=== PATIENT | female | born 1970 | race Caucasian/White ===

== ENCOUNTER 2016-04-21 14:18 | Emergency (ER) | payer SELFPAY ==
--- NOTE | 2016-04-21 14:26 | ER Document Report ---
ED Medical Screen (RME) - General Chief Complaint: Chest Pain Stated Complaint: CHEST PAIN Time seen by provider: 14:24 Mode of Arrival: Ambulatory Information source: Patient Notes: 45 yo female presents to ed for chest palpitations that changed to chest tightness and short of breath with headache. TRAVEL OUTSIDE OF THE [place] IN LAST 30 DAYS: No - HPI Onset: This morning Onset/Duration: Gradual Quality of pain: Other - tight Severity: Moderate Pain Level: 3 Associated Symptoms: Chest pain, Headache, Shortness of breath, Other - palpitations Exacerbated by: Denies Relieved by: Denies Similar symptoms previously: Yes Recently seen / treated by doctor: No - Related Data Smoking: Other - vap Frequency of alcohol use: Occasional Drug Abuse: None Allergies/Adverse Reactions: acetaminophen [From Percocet] Adverse Reaction (Verified 04/21/16 14:23) VOMITING morphine [Morphine] Adverse Reaction (Verified 04/21/16 14:23) VOMITING oxycodone HCl [From Percocet] Adverse Reaction (Verified 04/21/16 14:23) VOMITING tylenol codiene Adverse Reaction (Uncoded 04/21/16 14:23) VOMITING Past Medical History - Social History Family history: Arthritis, CAD, Hyperlipidemia, Hypertension, Malignancy Pulmonary Medical History: Denies: Hx Tuberculosis Neurological Medical History: Denies: Hx Seizures Endocrine Medical History: Reports: Hx Hypothyroidism Renal/ Medical History: Reports: Hx Ovarian Cysts, Hx Pelvic Inflammatory Disease Musculoskeltal Medical History: Reports Hx Musculoskeletal Deformity, Reports Hx Musculoskeletal Trauma Past Surgical History: Reports: Hx Inguinal Hernia - right, Hx Orthopedic Surgery - ORIF tib-fib. Denies: Hx Hysterectomy - HCG NEGATIVE, Hx Pacemaker - Immunizations Immunizations up to date: Yes Hx Diphtheria, Pertussis, Tetanus Vaccination: Yes
[2016-04-21 15:07] LABS: ABSOLUTE BASOPHILS # (AUTO) 0.1 10^3/uL (0.0-0.2); ABSOLUTE LYMPHOCYTES (AUTO) 2.6 10^3/uL (0.5-4.7); ABSOLUTE MONOCYTES (AUTO) 0.5 10^3/uL (0.1-1.4); ABSOLUTE NEUT (AUTO) 7.7 10^3/uL (1.7-8.2); BASOPHILS % (AUTO) 0.8 % (0-2); EOSINOPHILS % (AUTO) 0.3 % (0-6); HEMATOCRIT 41.8 % (36.0-47.0); HEMOGLOBIN 14.2 g/dL (12.0-15.5); HGB HCT DIFFERENCE 0.8; LYMPHOCYTES % (AUTO) 23.7 % (13-45); MEAN CORPUSCULAR HEMOGLOBIN 30.2 pg (27.0-33.4); MEAN CORPUSCULAR HGB CONC 33.9 g/dL (32.0-36.0); MEAN CORPUSCULAR VOLUME 89 fl (80-97); MONOCYTES % (AUTO) 4.7 % (3-13); RED BLOOD COUNT 4.69 10^6/uL (3.72-5.28); SEGMENTED NEUTROPHILS % (AUTO) 70.5 % (42-78); WHITE BLOOD COUNT 10.9 10^3/uL (4.0-10.5)
[2016-04-21 15:23] LABS: ALANINE AMINOTRANSFERASE 27 U/L (9-52); ALBUMIN 4.7 g/dL (3.5-5.0); ALKALINE PHOSPHATASE 52 U/L (38-126); ANION GAP 11 (5-19); ASPARTATE AMINO TRANSFERASE 33 U/L (14-36); BLOOD UREA NITROGEN 14 mg/dL (7-20); CALCIUM 9.7 mg/dL (8.4-10.2); CARBON DIOXIDE 26 mmol/L (22-30); CHLORIDE 103 mmol/L (98-107); CREATINE KINASE 50 U/L (30-135); CREATININE RESULT 0.72 mg/dL (0.52-1.25); GLUCOSE 90 mg/dL (75-110); LIPASE 117.7 U/L (23-300); POTASSIUM 3.9 mmol/L (3.6-5.0); SODIUM 140.4 mmol/L (137-145); TOTAL PROTEIN 8.1 g/dL (6.3-8.2)
[2016-04-21 15:35] LABS: CREATINE KINASE MB 0.26 ng/mL (<4.55)
[2016-04-21 15:37] LABS: TROPONIN I < 0.012 ng/mL
[2016-04-21 16:17] LABS: APPEARANCE,URINE SLIGHTLY-CLOUDY; BILIRUBIN,URINE NEGATIVE (NEGATIVE); GLUCOSE, URINE NEGATIVE (NEGATIVE); KETONES,URINE 80 mg/dL (NEGATIVE); LEUKOCYTE ESTERASE,URINE NEGATIVE (NEGATIVE); NITRITE,URINE NEGATIVE (NEGATIVE); PROTEIN,URINE 30 mg/dL (NEGATIVE); URINE SPECIFIC GRAVITY 1.028; UROBILINOGEN,URINE NEGATIVE mg/dL (<2.0)
[2016-04-21] MEDS ORDERED: NORMAL SALINE 1000 ML 1,000 ML IV PRN (16:20)
--- NOTE | 2016-04-21 17:20 | ER Document Report ---
ED General - General Chief Complaint: Chest Pain Stated Complaint: CHEST PAIN Mode of Arrival: Ambulatory Information source: Patient Notes: 45-year-old female presents with complaints of palpitations. Patient denies any fevers or chills nausea vomiting diarrhea patient notes heart has been racing intermittently over the past 2 years notes she has a history of thyroid disorder and takes supplemental thyroid medication Symptoms occurred this morning lasting now not associated with any chest pain TRAVEL OUTSIDE OF THE [place] IN LAST 30 DAYS: No - HPI Onset: Just prior to arrival Onset/Duration: Sudden Quality of pain: No pain Severity: Mild Pain Level: Denies Associated symptoms: Other Exacerbated by: Denies Relieved by: Denies Similar symptoms previously: Yes Recently seen / treated by doctor: Yes - Related Data Allergies/Adverse Reactions: acetaminophen [From Percocet] Adverse Reaction (Verified 04/21/16 14:23) VOMITING morphine [Morphine] Adverse Reaction (Verified 04/21/16 14:23) VOMITING oxycodone HCl [From Percocet] Adverse Reaction (Verified 04/21/16 14:23) VOMITING tylenol codiene Adverse Reaction (Uncoded 04/21/16 14:23) VOMITING Past Medical History - General Information source: Patient - Social History Smoking Status: Never Smoker Cigarette use (# per day): No Chew tobacco use (# tins/day): No Smoking Education Provided: No Frequency of alcohol use: Occasional Drug Abuse: None Family History: Reviewed & Not Pertinent Patient has suicidal ideation: No Patient has homicidal ideation: No - Past Medical History Cardiac Medical History: Reports: Hx Hypercholesterolemia - no medication Pulmonary Medical History: Denies: Hx Tuberculosis Neurological Medical History: Denies: Hx Seizures Endocrine Medical History: Reports: Hx Hypothyroidism Renal/ Medical History: Reports: Hx Ovarian Cysts, Hx Pelvic Inflammatory Disease Musculoskeltal Medical History: Reports Hx Musculoskeletal Deformity, Reports Hx Musculoskeletal Trauma Past Surgical History: Reports: Hx Inguinal Hernia - right, Hx Orthopedic Surgery - ORIF tib-fib. Denies: Hx Hysterectomy - HCG NEGATIVE, Hx Pacemaker - Immunizations Immunizations up to date: Yes Hx Diphtheria, Pertussis, Tetanus Vaccination: Yes Hx Pneumococcal Vaccination: 01/14/11 Review of Systems - Review of Systems Notes: REVIEW OF SYSTEMS: CONSTITUTIONAL : Denies fever, chills, or sweats. Denies recent illness. EENT: Denies eye, ear, throat, or mouth pain or symptoms. Denies nasal or sinus congestion or discharge. Denies throat, tongue, or mouth swelling or difficulty swallowing. CARDIOVASCULAR: Admits to palpitations RESPIRATORY: Denies cough, cold, or chest congestion. Denies shortness of breath, difficulty breathing, or wheezing. GASTROINTESTINAL: Denies abdominal pain or distention. Denies nausea, vomiting , or diarrhea. Denies blood in vomitus, stools, or per rectum. Denies black, tarry stools. Denies constipation. GENITOURINARY: Denies difficulty urinating, painful urination, burning, frequency, blood in urine, or discharge. FEMALE GENITOURINARY: Denies vaginal bleeding, heavy or abnormal periods, irregular periods. Denies vaginal discharge or odor. MUSCULOSKELETAL: Denies back or neck pain or stiffness. Denies joint pain or swelling. SKIN: Denies rash, lesions or sores. HEMATOLOGIC : Denies easy bruising or bleeding. LYMPHATIC: Denies swollen, enlarged glands. NEUROLOGICAL: Denies confusion or altered mental status. Denies passing out or loss of consciousness. Denies dizziness or lightheadedness. Denies headache. Denies weakness or paralysis or loss of use of either side. Denies problems with gait or speech. Denies sensory loss, numbness, or tingling. Denies seizures. PSYCHIATRIC: Denies anxiety or stress. Denies depression, suicidal ideation, or homicidal ideation. ALL OTHER SYSTEMS REVIEWED AND NEGATIVE. Dictation was performed using [employer] recognition software PHYSICAL EXAMINATION: GENERAL: Well-appearing, well-nourished and in no acute distress. HEAD: Atraumatic, normocephalic. EYES: Pupils equal round and reactive to light, extraocular movements intact, conjunctiva are normal. ENT: Nares patent, oropharynx clear without exudates. Moist mucous membranes. NECK: Normal range of motion, supple without lymphadenopathy LUNGS: Breath sounds clear to auscultation bilaterally and equal. No wheezes rales or rhonchi. HEART: Regular rate and rhythm without murmurs ABDOMEN: Soft, nontender, nondistended abdomen. No guarding, no rebound. No masses appreciated. Female : deferred Musculoskeletal: Normal range of motion, no pitting or edema. No cyanosis. NEUROLOGICAL: Cranial nerves grossly intact. Normal speech, normal gait. Normal sensory, motor exams PSYCH: Normal mood, normal affect. SKIN: Warm, Dry, normal turgor, no rashes or lesions noted. Physical Exam - Vital signs Vitals: Temp Pulse Resp BP Pulse Ox 98.5 F 102 H 16 118/76 99 04/21/16 14:23 04/21/16 14:23 04/21/16 14:23 04/21/16 14:23 04/21/16 14:23 Course - Re-evaluation Re-evalutation: 04/21/16 17:18 Patient's thyroid level was normal and she does have large amount of ketones , I believe she is dehydrated as a cause of her palpitations at this time. Patient will be given cardiology follow-up for evaluation After performing a Medical Screening Examination, I estimate there is LOW risk for RUPTURED ESOPHAGUS, PNEUMOTHORAX, PULMONARY EMBOLISM, ACUTE CORONARY SYNDROME, OR THORACIC AORTIC DISSECTION, thus I consider the discharge disposition reasonable. The patient and I have discussed the diagnosis and risks , and we agree with discharging home with close follow-up. We also discussed returning to the Emergency Department immediately if new or worsening symptoms occur. We have discussed the symptoms which are most concerning (e.g., bloody sputum, worsening pain or shortness of breath) that necessitate immediate return. - Vital Signs Vital signs: Temp Pulse Resp BP Pulse Ox 98.1 F 102 H 18 102/62 100 04/21/16 16:01 04/21/16 14:23 04/21/16 16:01 04/21/16 16:01 04/21/16 16:01 - Laboratory Result Diagrams: 04/21/16 14:50 04/21/16 14:50 Laboratory results interpreted by me: 04/21/16 04/21/16 14:50 15:48 WBC 10.9 H Urine Protein 30 H Urine Ketones 80 H Urine Ascorbic Acid 40 H - EKG Interpretation by Ne EKG shows normal: Sinus rhythm, Keller, Intervals, QRS Complexes Discharge - Discharge Clinical Impression: Palpitations, Ketonuria Condition: Stable Disposition: HOME, SELF-CARE Instructions: Palpitations (Irregular or Rapid Heartrate) ([facility]) Referrals: ROB JUSTICE MD [ACTIVE STAFF] - Follow up tomorrow
--- NOTE | 2016-04-21 17:41 | EKG REPORT ---
SEVERITY:- NORMAL ECG - SINUS RHYTHM : Confirmed by: Brody Forte 21-Apr-2016 17:41:04
[2016-04-21 17:45] VITALS: BP 132/78
== END 2016-04-21 17:46 | disposition home or self-care (01) ==
LOC: ER 14:18
DX: R00.2 Palpitations (principal); R82.4 Acetonuria; E03.9 Hypothyroidism, unspecified; Z79.899 Other long term (current) drug therapy
CPT/HCPCS: 93005; 99285; 96360; 36415; 82553; 82550; 83690; 84443; 85025; 80053; 81001; 84484; 71020; 93010; J7030

== ENCOUNTER → 2016-06-20 | Outpatient (CLI) | payer OTHER ==
--- NOTE | 2016-06-20 14:11 | NONINVASIVE CARDIOLOGY REPORT ---
STRESS TEST REPORT PATIENT NAME: MAGALY IBARRA ROOM#: DATE OF SERVICE: 06/20/2016 AGE: 45Y ORDER#: [id number] REFERRING MD: DEIRDRE Jackman INDICATION: Assessment of chest tightness and palpitations. PROCEDURE PERFORMED: EKG TREADMILL STRESS TEST CLINICAL HISTORY: Coronary risk factors include elevated cholesterol and smoking. REPORT: Significant physical findings prior to stress testing showed blood pressure of 123/80 and heart rate of 81 bpm with no ectopy. Auscultation of the heart showed an S4 with no murmur. Resting 12-lead EKG showed right axis deviation and poor R progression in V1 to V4. PROCEDURE: The patient exercised on a standard Dean protocol. She walked a total of 10 minutes on this protocol, reaching a peak heart rate of 160 bpm, which is 90% of the maximum predicted heart rate for age. The test was stopped because of maximum effort. Patient described symptoms of left-sided chest tightness, 1/5 in intensity prior to exercise. With increasing exercise, this discomfort escalated to 3/5 at peak exercise. Thereafter, this discomfort lingered post exercise. Exercise EKG showed [address] depression in the inferolateral leads (leads 2, 3, AVF, V4 to V6). Arrhythmias seen were PACs. Blood pressure response was normal. At peak exercise, the blood pressure was 176/78 and double product was 28K. SUMMARY OF FINDINGS/IMPRESSION: 1. CHEST TIGHTNESS AT BASELINE, INCREASED FROM 1 TO 3/5 IN INTENSITY AT PEAK EXERCISE, CONTINUING POST EXERCISE. 2. EKG EVIDENCE OF ISCHEMIA IN THE FORM OF [address] DEPRESSION IN LEADS II, III, AVF, V4 TO V6. 3. NORMAL BLOOD PRESSURE RESPONSE. 4. PAC ARRHYTHMIAS, BUT NO PAROXYSMAL ATRIAL FIBRILLATION. 5. GOOD EXERCISE TOLERANCE. GOOD AEROBIC CAPACITY. POSITIVE EKG TREADMILL STRESS TEST, ? FALSE POSITIVE. RECOMMENDATIONS: Consider treadmill myocardial perfusion imaging testing to rule out false positive test. INTERPRETING PHYSICIAN: ANDREW TROTTER M.D. /: HUGO TT: [id number] ID: [id number] /: [id number] TD: [id number] JOB: [id number] cc:Lortea NIEVES FNP, FAX [phone] > [facility]
== END ==
LOC: SP 07:10
PROVIDERS: ATTEND Nurse Practitioner
DX: R00.2 Palpitations (principal)
CPT/HCPCS: 93017

== ENCOUNTER 2016-07-13 09:45 | Emergency (ER) | payer OTHER ==
[2016-07-13] MEDS ORDERED: ASPIRIN 81 MG TABLET, CHEWABLE PO ONE (10:02)
--- NOTE | 2016-07-13 10:07 | ER Document Report ---
ED Medical Screen (RME) - General Stated Complaint: CHEST PAIN,NAUSEA Time seen by provider: 10:04 Mode of Arrival: Wheelchair Information source: Patient Notes: 46-year-old female presents to ED for tightness in her chest with nausea states she has a history of ischemia and the pain is now from her chest up into her neck. Said it started with a tightness this morning but it is gotten worse as the days go on on. I have greeted and performed a rapid initial assessment of this patient. A comprehensive ED assessment and evaluation of the patient, analysis of test results and completion of medical decision making process will be conducted by an additional ED providers. TRAVEL OUTSIDE OF THE [place] IN LAST 30 DAYS: No - Related Data Allergies/Adverse Reactions: acetaminophen [From Percocet] Adverse Reaction (Verified 07/13/16 10:05) VOMITING morphine [Morphine] Adverse Reaction (Verified 07/13/16 10:05) VOMITING oxycodone HCl [From Percocet] Adverse Reaction (Verified 07/13/16 10:05) VOMITING tylenol codiene Adverse Reaction (Uncoded 07/13/16 10:05) VOMITING Past Medical History - Social History Family history: Arthritis, CAD, Hyperlipidemia, Hypertension, Malignancy - Past Medical History Cardiac Medical History: Reports: Hx Hypercholesterolemia - no medication Pulmonary Medical History: Denies: Hx Tuberculosis Neurological Medical History: Denies: Hx Seizures Endocrine Medical History: Reports: Hx Hypothyroidism Renal/ Medical History: Reports: Hx Ovarian Cysts, Hx Pelvic Inflammatory Disease Musculoskeltal Medical History: Reports Hx Musculoskeletal Deformity, Reports Hx Musculoskeletal Trauma Past Surgical History: Reports: Hx Inguinal Hernia - right, Hx Orthopedic Surgery - ORIF tib-fib. Denies: Hx Hysterectomy - HCG NEGATIVE, Hx Pacemaker - Immunizations Immunizations up to date: Yes Hx Diphtheria, Pertussis, Tetanus Vaccination: Yes Physical Exam - Vital signs Vitals: Temp Pulse Resp BP Pulse Ox 98.3 F 85 20 117/79 99 07/13/16 10:02 07/13/16 10:02 07/13/16 10:02 07/13/16 10:02 07/13/16 10:02 Course - Vital Signs Vital signs: Temp Pulse Resp BP Pulse Ox 98.3 F 85 20 117/79 99 07/13/16 10:02 07/13/16 10:02 07/13/16 10:02 07/13/16 10:02 07/13/16 10:02
[2016-07-13 10:48] LABS: PROTHROMBIN TIME 11.8 SEC (11.4-15.4)
[2016-07-13 10:49] LABS: PARTIAL THROMBOPLASTIN TIME 30.4 SEC (23.5-35.8)
--- NOTE | 2016-07-13 10:53 | ER Document Report ---
ED Cardiac - General Chief Complaint: Chest Pain > 30 Stated Complaint: CHEST PAIN,NAUSEA Time seen by provider: 11:45 Mode of Arrival: Wheelchair Notes: attempted to see pt almost hour ago, nurse found her in the waiting room, radiology had taken her there after the chest xray. 46 yo smoker, hyperlipedemic, non htn, non dm, family hx CAD on mothers relatives, female retrsternal left upper chest tightness when she woke up this am, sudden nausea at 9:30 and pain radiated into left neck. No SOB. Recent stress test on 06-30-16 ordered by [facility] showed EKG evidence of ischemia in the form of 1mm ST depression in ledads 2,3,avf, V4-[address] solis. Takes 81 mg aspirin per day. At this time no nausea, still has tightness/squeezing in her chest. Cardiac palpitations have been for several years, tightness began for 1 year. Episodes last 6-12 hours. No aggrevating or alleviating. No cough. NO fever or chills. NO recent URI. Another stress test-cardiolyte scheduled for July. LMP 06-23-16. Does not take hormones. TRAVEL OUTSIDE OF THE [place] IN LAST 30 DAYS: No - Related Data Allergies/Adverse Reactions: acetaminophen [From Percocet] Adverse Reaction (Verified 07/13/16 10:05) VOMITING morphine [Morphine] Adverse Reaction (Verified 07/13/16 10:05) VOMITING oxycodone HCl [From Percocet] Adverse Reaction (Verified 07/13/16 10:05) VOMITING tylenol codiene Adverse Reaction (Uncoded 07/13/16 10:05) VOMITING Past Medical History - General Information source: Patient - Social History Smoking Status: Former Smoker Chew tobacco use (# tins/day): No Frequency of alcohol use: None Drug Abuse: None Lives with: Family Family History: Reviewed & Not Pertinent Patient has suicidal ideation: No Patient has homicidal ideation: No - Past Medical History Cardiac Medical History: Reports: Hx Hypercholesterolemia - no medication Pulmonary Medical History: Denies: Hx Tuberculosis Neurological Medical History: Denies: Hx Seizures Endocrine Medical History: Reports: Hx Hypothyroidism Renal/ Medical History: Reports: Hx Ovarian Cysts, Hx Pelvic Inflammatory Disease. Denies: Hx Peritoneal Dialysis Musculoskeltal Medical History: Reports Hx Musculoskeletal Deformity, Reports Hx Musculoskeletal Trauma Past Surgical History: Reports: Hx Inguinal Hernia - right, Hx Orthopedic Surgery - ORIF tib-fib. Denies: Hx Hysterectomy - HCG NEGATIVE, Hx Pacemaker - Immunizations Immunizations up to date: Yes Hx Diphtheria, Pertussis, Tetanus Vaccination: Yes Hx Pneumococcal Vaccination: 01/14/11 Review of Systems - Review of Systems Constitutional: No symptoms reported EENT: No symptoms reported Cardiovascular: See HPI Respiratory: No symptoms reported Gastrointestinal: No symptoms reported Genitourinary: No symptoms reported Female Genitourinary: No symptoms reported Musculoskeletal: No symptoms reported Skin: No symptoms reported Hematologic/Lymphatic: No symptoms reported Neurological/Psychological: No symptoms reported Physical Exam - Vital signs Vitals: Temp Pulse Resp BP Pulse Ox 98.3 F 85 20 117/79 99 07/13/16 10:02 07/13/16 10:02 07/13/16 10:02 07/13/16 10:02 07/13/16 10:02 Interpretation: Normal - General General appearance: Appears well, Alert - HEENT Head: Normocephalic, Atraumatic Eyes: Normal Conjunctiva: Normal Pupils: PERRL Neck: Supple. No: Lymphadenopathy - Respiratory Respiratory status: No respiratory distress Chest status: Nontender Breath sounds: Normal Chest palpation: Normal - Cardiovascular Rhythm: Regular Heart sounds: Normal auscultation Murmur: No - Abdominal Inspection: Normal Distension: No distension Bowel sounds: Normal Tenderness: Nontender. No: Tender Organomegaly: No organomegaly - Back Back: Normal, Nontender. No: CVA tenderness - Extremities General upper extremity: Normal inspection, Nontender, Normal color, Normal ROM , Normal temperature General lower extremity: Normal inspection, Nontender, Normal color, Normal ROM , Normal temperature, Normal weight bearing. No: Summer's sign - Neurological Neuro grossly intact: Yes Cognition: Normal Orientation: AAOx4 Jonathan Coma Scale Eye Opening: Spontaneous Everett Coma Scale Verbal: Oriented Everett Coma Scale Motor: Obeys Commands Everett Coma Scale Total: 15 Speech: Normal Motor strength normal: LUE, RUE, LLE, RLE Sensory: Normal - Psychological Associated symptoms: Normal affect, Normal mood - Skin Skin Temperature: Warm Skin Moisture: Dry Skin Color: Normal Skin irregularity: negative: Rash Course - Re-evaluation Re-evalutation: 07/13/16 12:[address] busteed who states that since she had a positive stress test. 07/13/16 12:[address] solis who read the stress test and he rec consulting with the pst specialist. dr delgado rucker er pst specialist rec sending her to [facility] today. pt is requesting [facility]. 07/13/16 12:17 call to [facility] transfer cardiology 07/13/16 12:40 One nitroglycerin helped relieve the pain order 2 more sublingual and the pain is gone may put some paste on her. Have discussed the pt with dr mcdonald 07/13/16 12:59 Dr. Hylton at [facility] pst specialist will accept the patient and she will go straight to the catheter lab. They decided to fly her so we are pending [facility] flight transport. 07/13/16 13:05 Chest pain gone with the second nitroglycerin so half inch nitroglycerin paste added to chest. vitals are stable, still in NSR. 07/13/16 14:07 pt left by air at 13:50 - Vital Signs Vital signs: Temp Pulse Resp BP Pulse Ox 98.1 F 88 14 129/85 H 100 07/13/16 13:50 07/13/16 13:50 07/13/16 13:50 07/13/16 13:50 07/13/16 13:50 - Laboratory Result Diagrams: 07/13/16 10:20 07/13/16 10:20 Laboratory results interpreted by me: 07/13/16 10:20 WBC 14.4 H RDW 14.3 H Seg Neutrophils % 89.6 H Lymphocytes % 7.0 L Monocytes % 2.5 L Absolute Neutrophils 12.9 H - EKG Interpretation by Me EKG shows normal: Sinus rhythm Rate: Normal Rhythm: NSR When compared to previous EKG there are: No significant change
[2016-07-13 11:02] LABS: ABSOLUTE BASOPHILS # (AUTO) 0.1 10^3/uL (0.0-0.2); ABSOLUTE MONOCYTES (AUTO) 0.4 10^3/uL (0.1-1.4); ABSOLUTE NEUT (AUTO) 12.9 10^3/uL (1.7-8.2); BASOPHILS % (AUTO) 0.7 % (0-2); EOSINOPHILS % (AUTO) 0.2 % (0-6); HEMATOCRIT 39.9 % (36.0-47.0); HEMOGLOBIN 13.5 g/dL (12.0-15.5); HGB HCT DIFFERENCE 0.6; MEAN CORPUSCULAR HEMOGLOBIN 29.6 pg (27.0-33.4); MEAN CORPUSCULAR HGB CONC 33.7 g/dL (32.0-36.0); MEAN CORPUSCULAR VOLUME 88 fl (80-97); MONOCYTES % (AUTO) 2.5 % (3-13); RED BLOOD COUNT 4.56 10^6/uL (3.72-5.28); RED CELL DISTRIBUTION WIDTH 14.3 % (11.5-14.0); SEGMENTED NEUTROPHILS % (AUTO) 89.6 % (42-78); WHITE BLOOD COUNT 14.4 10^3/uL (4.0-10.5)
[2016-07-13 11:14] LABS: ALANINE AMINOTRANSFERASE 24 U/L (9-52); ALBUMIN 4.1 g/dL (3.5-5.0); ALKALINE PHOSPHATASE 49 U/L (38-126); ANION GAP 11 (5-19); ASPARTATE AMINO TRANSFERASE 19 U/L (14-36); BILIRUBIN,DIRECT 0.3 mg/dL (0.0-0.4); BILIRUBIN,TOTAL 0.8 mg/dL (0.2-1.3); BLOOD UREA NITROGEN 13 mg/dL (7-20); CALCIUM 9.5 mg/dL (8.4-10.2); CARBON DIOXIDE 25 mmol/L (22-30); CHLORIDE 105 mmol/L (98-107); CREATINE KINASE 50 U/L (30-135); CREATININE RESULT 0.63 mg/dL (0.52-1.25); GLUCOSE 108 mg/dL (75-110); MAGNESIUM 1.8 mg/dL (1.6-2.3); POTASSIUM 4.5 mmol/L (3.6-5.0); SODIUM 140.5 mmol/L (137-145); TOTAL PROTEIN 7.3 g/dL (6.3-8.2)
[2016-07-13 11:22] LABS: CREATINE KINASE MB < 0.22 ng/mL (<4.55); TROPONIN I < 0.012 ng/mL
[2016-07-13] MEDS ORDERED: NITROGLYCERIN 0.4 MG/TAB 25 TAB/BOTTLE SL ONE (12:16)
[2016-07-13] MEDS: NITROGLYCERIN 0.4 MG/TAB 25 TAB/BOTTLE SL PRN ×2 (12:53→13:03)
[2016-07-13] MEDS ORDERED: NITROGLYCERIN 2% OINTMENT 1 GM PACKET TP ONE (13:05)
[2016-07-13 14:06] VITALS: BP 129/85
--- NOTE | 2016-07-13 20:43 | EKG REPORT ---
SEVERITY:- NORMAL ECG - SINUS RHYTHM : Confirmed by: Brody Forte 13-Jul-2016 20:43:05
== END 2016-07-13 13:58 | disposition short-term general hospital (02) ==
LOC: ER 09:45
DX: R07.89 Other chest pain (principal); I25.9 Chronic ischemic heart disease, unspecified; E78.5 Hyperlipidemia, unspecified; R00.2 Palpitations; Z79.82 Long term (current) use of aspirin; Z87.891 Personal history of nicotine dependence
CPT/HCPCS: 36415; 71020; 80053; 82550; 82553; 83735; 84484; 84703; 85025; 85610; 85730; 93005; 93010; 99285

== ENCOUNTER → 2018-06-06 | Outpatient (CLI) | payer OTHER | LOC: OD 11:24 | PROVIDERS: ATTEND Otolaryngology | DX: J30.9 Allergic rhinitis, unspecified (principal) | CPT/HCPCS: 36415; 82785; 86003 ==

== ENCOUNTER 2018-09-01 10:09 | Emergency (ER) | payer OTHER ==
[2018-09-01] MEDS ORDERED: CEPHALEXIN 500 MG CAPSULE PO ONE (10:50)
[2018-09-01] MEDS ORDERED: SULFAMETHOXAZOLE/TRIMETHOPRIM 800-160 MG TABLET PO ONE (10:50)
[2018-09-01] MEDS ORDERED: ONDANSETRON 4 MG TAB.RAPDIS PO ONE (10:50)
--- NOTE | 2018-09-01 10:53 | ER Document Report ---
HPI - HPI Patient complains to provider of: Insect bite Time Seen by Provider: 09/01/18 10:44 Onset: Last week Onset/Duration: Worse Quality of pain: Achy Pain Level: 3 Context: Patient states she was camping recently and was bit by multiple ticks. Patient states she kept repeatedly pulling ticks off. Patient states that she may have picked something off of her right buttock 6 days ago but she did not look at it. Patient reports fever of 101 at home. Patient complains of worsening right buttock pain with nausea. She denies any headache. Associated Symptoms: Fever, Other - Right buttock pain Exacerbated by: Movement Relieved by: Denies Similar symptoms previously: No Recently seen / treated by doctor: No - ROS ROS below otherwise negative: Yes Systems Reviewed and Negative: Yes All other systems reviewed and negative - CONSTITUTIONAL Constitutional: REPORTS: Fever - NEURO Neurology: DENIES: Headache, Weakness - GASTROINTESTINAL Gastrointestinal: DENIES: Patient vomiting - REPRODUCTIVE Reproductive: DENIES: : - DERM Skin Color: Erythema Notes: Possible insect bite to right buttock Past Medical History - General Information source: Patient - Social History Smoking Status: Never Smoker Frequency of alcohol use: None Drug Abuse: None Occupation: None Family History: Reviewed & Not Pertinent - Past Medical History Cardiac Medical History: Reports: Hx Hypercholesterolemia - no medication Pulmonary Medical History: Denies: Hx Tuberculosis Neurological Medical History: Denies: Hx Seizures Endocrine Medical History: Reports: Hx Hypothyroidism, Other - Khalida Renal/ Medical History: Reports: Hx Ovarian Cysts, Hx Pelvic Inflammatory Disease. Denies: Hx Peritoneal Dialysis Musculoskeletal Medical History: Reports Hx Musculoskeletal Deformity, Reports Hx Musculoskeletal Trauma Past Surgical History: Reports: Hx Inguinal Hernia - right, Hx Orthopedic Surgery - ORIF tib-fib - Immunizations Immunizations up to date: Yes Hx Diphtheria, Pertussis, Tetanus Vaccination: Yes Hx Pneumococcal Vaccination: 01/14/11 Vertical Provider Document - CONSTITUTIONAL Agree With Documented VS: Yes Exam Limitations: No Limitations General Appearance: WD/WN, No Apparent Distress - INFECTION CONTROL TRAVEL OUTSIDE OF THE [place] IN LAST 30 DAYS: No - HEENT HEENT: Atraumatic, Normocephalic - NECK Neck: Normal Inspection - RESPIRATORY Respiratory: Breath Sounds Normal, No Respiratory Distress - CARDIOVASCULAR Cardiovascular: Regular Rate, Regular Rhythm - BACK Back: Normal Inspection - MUSCULOSKELETAL/EXTREMETIES Musculoskeletal/Extremeties: COLLINS PEREIRA - NEURO Level of Consciousness: Awake, Alert, Appropriate Motor/Sensory: No Motor Deficit - DERM Integumentary: Warm, Dry, Abscess - Abscess to right buttock with large area of surrounding erythema. Area is starting to spontaneously drain on its own. Course - Re-evaluation Re-evalutation: 09/01/18 11:16 Patient is concerned that she has had multiple tick bites after recent camping trip and she was concerned that this abscess started due to a tick bite. Patient reports removing the ticks upon finding them. Patient symptoms otherwi se are worrisome for abscess at this time. Wound culture was obtained. 09/01/18 11:[address] Noriega who recommends placing patient just on doxycycline to treat her abscess cellulitis as well as tick bite at this time. - Vital Signs Vital signs: Temp Pulse Resp BP Pulse Ox 98.2 F 107 H 22 H 110/69 97 09/01/18 10:18 09/01/18 10:18 09/01/18 10:18 09/01/18 10:18 09/01/18 10:18 Procedures - Incision and Drainage Right Buttock Type: Simple Anesthetic type: 1% Lidocaine Blade size: 11 I&D procedure: Betadine prep applied Incision Method: Incision made by scalpel Amount/type of drainage: Moderate amount of purulent drainage removed Discharge - Discharge Clinical Impression: Abscess, Encounter for incision and drainage procedure Cellulitis Qualifiers: Site of cellulitis: buttock Qualified Code(s): L03.317 - Cellulitis of buttock Tick bite Qualifiers: Encounter type: initial encounter Qualified Code(s): W57.XXXA - Bitten or stung by nonvenomous insect and other nonvenomous arthropods, initial encounter Condition: Stable Disposition: HOME, SELF-CARE Instructions: Abscess ([facility]), Doxycycline ([facility]), Post Incision and Drainage, Tick Bites ([facility]) Additional Instructions: Return immediately for any new or worsening symptoms Followup with your primary care provider, call tomorrow to make a followup appointment Return in 2 days for recheck if your symptoms are not starting to improve. Return immediately for any worsening of symptoms Prescriptions: Doxycycline Hyclate 100 mg PO BID #28 capsule Referrals: FRANSISCA BERGMAN MD [ACTIVE STAFF] - Follow up as needed
[2018-09-01] MEDS ORDERED: DOXYCYCLINE HYCLATE 100 MG TABLET PO ONE ×2 (11:15→11:23)
[2018-09-01 11:45] VITALS: BP 105/65
== END 2018-09-01 11:38 | disposition home or self-care (01) ==
LOC: ER 10:09
DX: L02.31 Cutaneous abscess of buttock (principal); L03.317 Cellulitis of buttock; T14.8XXA Other injury of unspecified body region, initial encounter; W57.XXXA Bitten or stung by nonvenomous insect and other nonvenomous arthropods, initial encounter; R50.9 Fever, unspecified
CPT/HCPCS: 99283; 87070; 87205; 87075; 87077; 87186; 10060; S0119

== ENCOUNTER 2018-09-05 08:58 | Emergency (ER) | payer OTHER ==
[2018-09-05 09:05] VITALS: BP 135/86
--- NOTE | 2018-09-05 10:18 | ER Document Report ---
HPI - HPI Time Seen by Provider: 09/05/18 09:47 Pain Level: 3 Notes: Patient is a 48-year-old female presenting with request to recheck her abscess. Patient has an abscess to the right buttocks that was incised and drained here at this facility 4 days ago. Patient reports she is taking her doxycycline as prescribed. Patient does report she also has some cough and congestion, states this morning she felt like she had a low-grade fever. Patient reports she has been changing the dressing to the abscess multiple times daily and it has been draining well. - REPRODUCTIVE Reproductive: DENIES: : Past Medical History - General Information source: Patient - Social History Smoking Status: Never Smoker Frequency of alcohol use: None Drug Abuse: None Family History: Reviewed & Not Pertinent - Past Medical History Cardiac Medical History: Reports: Hx Hypercholesterolemia - no medication Pulmonary Medical History: Denies: Hx Tuberculosis Neurological Medical History: Denies: Hx Seizures Endocrine Medical History: Reports: Hx Hypothyroidism Renal/ Medical History: Reports: Hx Ovarian Cysts, Hx Pelvic Inflammatory Disease. Denies: Hx Peritoneal Dialysis Musculoskeletal Medical History: Reports Hx Musculoskeletal Deformity, Reports Hx Musculoskeletal Trauma Past Surgical History: Reports: Hx Inguinal Hernia - right, Hx Orthopedic Surgery - ORIF tib-fib. Denies: Hx Hysterectomy, Hx Pacemaker - Immunizations Immunizations up to date: Yes Hx Diphtheria, Pertussis, Tetanus Vaccination: Yes Hx Pneumococcal Vaccination: 01/14/11 Vertical Provider Document - CONSTITUTIONAL Notes: PHYSICAL EXAMINATION: GENERAL: Well-appearing, well-nourished and in no acute distress. HEAD: Atraumatic, normocephalic. EYES: Pupils equal round extraocular movements intact, conjunctiva are normal. ENT: Nares patent NECK: Normal range of motion LUNGS: No respiratory distress Musculoskeletal: Normal range of motion NEUROLOGICAL: Normal speech, normal gait. PSYCH: Normal mood, normal affect. SKIN: Area of erythema and induration noted to right buttock, no fluctuance noted. Larger area of skin irritation that appears to be from the tape noted. - INFECTION CONTROL TRAVEL OUTSIDE OF THE [place] IN LAST 30 DAYS: No Course - Re-evaluation Re-evalutation: Area of erythema with induration is noted to patient's buttocks, there is also a central area with green/yellow exudates. The provider who initially did the incision and drainage To be working today so I did bring her to the room to evaluate it. She states that it looks much improved from previous at time of discharge on Sunday. Patient will be started on prednisone for her cough and congestion. She will continue taking the doxycycline. - Vital Signs Vital signs: Temp Pulse Resp BP Pulse Ox 97.6 F 75 16 135/86 H 97 09/05/18 09:04 09/05/18 09:04 09/05/18 09:04 09/05/18 09:04 09/05/18 09:04 Discharge - Discharge Clinical Impression: Abscess re-check, Bronchitis Condition: Stable Disposition: HOME, SELF-CARE Additional Instructions: Please continue taking the doxycycline as prescribed. The cellulitis and abscess looks significantly better in comparison with your visit on Sunday. Please continue placing clean dressings to the area, do your best to not use any tape. Start taking the prednisone for your respiratory symptoms. Follow-up with your primary care provider in 3 to 5 days if not better. Return to the emergency department for any new or worsening symptoms, worsening pain to the abscessed area, fever, red streaking from the area. Prescriptions: Prednisone [Deltasone 20 mg Tablet] 3 tab PO DAILY 5 Days #15 tablet Referrals: LELO BUSH MD [Primary Care Provider] - Follow up as needed
== END 2018-09-05 10:40 | disposition home or self-care (01) ==
LOC: ER 08:58
DX: J40 Bronchitis, not specified as acute or chronic (principal); R50.9 Fever, unspecified; R05 Cough; R09.81 Nasal congestion
CPT/HCPCS: 99282